=== PATIENT | male | born 1940 | race Caucasian/White ===

== ENCOUNTER 2022-05-23 12:01 | Day surgery (SDC) | payer MEDICARE, BC ==
[~2022-05-23] VITALS: Ht 175.3 cm; Wt 84.0 kg
[2022-05-23 11:01] VITALS: BP 176/78
[2022-05-23] MEDS ORDERED: normal saline 1000ml 1,000 ML IV PRN (12:25)
[2022-05-23] MEDS ORDERED: GRAP50CA5 PO (13:23)
[2022-05-23] MEDS ORDERED: ENZA40CA PO (13:23)
[2022-05-23] MEDS ORDERED: VENL75CA61 PO (13:23)
[2022-05-23] MEDS ORDERED: ALFU10TA10 PO (13:23)
[2022-05-23] MEDS ORDERED: SIMV-42 PO (13:23)
[2022-05-23] MEDS ORDERED: CHOL500049 PO (13:23)
[2022-05-23] MEDS ORDERED: ACET-1025 PO (13:23)
[2022-05-23] MEDS ORDERED: LEUP3.753 IM (13:23)
[2022-05-23] MEDS ORDERED: MULT-1085 PO (13:23)
[2022-05-23] MEDS ORDERED: LOSA50TA64 PO (13:23)
[2022-05-23] MEDS ORDERED: OLAP100T IJ (13:23)
[2022-05-23] MEDS ORDERED: ASPI-1071 PO (13:23)
[2022-05-23] MEDS ORDERED: LEVO100T9 PO (13:23)
[2022-05-23] MEDS ORDERED: ASCO500T19 PO (13:23)
[2022-05-23] MEDS ORDERED: IRON18TA PO (13:23)
[2022-05-23] MEDS ORDERED: OSC500T PO (13:23)
[2022-05-23 13:27] LABS: BASOPHILS % (AUTO) 0.7 % (0-1); EOSINOPHILS # (AUTO) 0.1 X10'3 (0-0.9); EOSINOPHILS % (AUTO) 1.8 % (0-6); HEMATOCRIT 32.8 % (42.0-52.0); HEMOGLOBIN 11.4 g/dl (14.0-17.9); LYMPHOCYTES # (AUTO) 0.5 X10'3 (1.1-4.8); LYMPHOCYTES % (AUTO) 13.8 % (21-51); MEAN CORPUSCULAR HEMOGLOBIN 37.7 PG (27.0-31.0); MEAN CORPUSCULAR HGB CONC 34.8 g/dL (33.0-36.5); MEAN CORPUSCULAR VOLUME 108.3 FL (78-98); MEAN PLATELET VOLUME 8.9 FL (7.4-10.4); MONOCYTES # (AUTO) 0.3 X10'3 (0-0.9); MONOCYTES % (AUTO) 8.2 % (2-12); NEUTROPHILS % (AUTO) 75.5 % (42-75); PLATELET COUNT 202 X10'3 (140-440); RED BLOOD COUNT 3.03 X10'6 (4.70-6.10); RED CELL DISTRIBUTION WIDTH 16.8 % (11.5-14.5); WHITE BLOOD COUNT 3.9 X10'3 (4.5-11.0)
[2022-05-23 13:32] LABS: ALBUMIN 3.5 G/DL (3.4-5.0); ANION GAP 7 (8-16); BLOOD UREA NITROGEN 18 MG/DL (7-18); BUN/CREATININE RATIO 18.8 (5.4-32.0); CALCIUM 8.2 MG/DL (8.5-10.1); CHLORIDE 109 MMOL/L (99-107); CREATININE 0.96 MG/DL (0.60-1.10); GLUCOSE 97 MG/DL (70-104); POTASSIUM 3.9 MMOL/L (3.5-5.1); SODIUM 143 MMOL/L (135-145); TOTAL CARBON DIOXIDE 27.1 MMOL/L (24-32); eGFR 75 ML/MIN
[2022-05-23] MEDS ORDERED: heparin sodium, porcine/PF 100unit/ml 5ML syringe ONE (14:27)
[2022-05-23] MEDS ORDERED: LIDOcaine 1%/PF 5ML 10 MG/ML VIAL ONE ×2 (14:27)
[2022-05-23] MEDS ORDERED: fentaNYL/PF 50MCG/1 ML 2ML syringe ONE (14:28)
[2022-05-23] MEDS ORDERED: midazolam 1 mg/ML 2ml injection ONE (14:28)
[2022-05-23] MEDS ORDERED: heparin 1,000 UNITS/NS 500ml 0 ML ONE (14:28)
[2022-05-23 15:50] VITALS: BP 172/77
[2022-05-23 16:00] VITALS: BP 159/81
[2022-05-23 16:15] VITALS: BP 166/84
[2022-05-23 16:30] VITALS: BP 164/78
== END 2022-05-23 16:55 | disposition home or self-care (01) ==
LOC: SSTAY O 12:01
PROVIDERS: ATTEND Radiology Vascular & Interventional Radiology
DX: C61 Malignant neoplasm of prostate (principal); Z79.899 Other long term (current) drug therapy; Z98.890 Other specified postprocedural states; Z88.6 Allergy status to analgesic agent
CPT/HCPCS: 36415; 36561; 76937; 77001; 80048; 85025; 99152; 99153; C1788; C1894; J1642; J2250; J3010; J3490; J7030; A4620; J1644